=== PATIENT | female | born 1950 | race Caucasian/White ===

== ENCOUNTER 2016-07-28 16:18 | Emergency (ER) | payer OTHER ==
[~2016-07-28] VITALS: Ht 160 cm; Wt 83.2 kg
[2016-07-28] MEDS ORDERED: CITA20TA9 PO (16:28)
[2016-07-28] MEDS ORDERED: MELO-273 PO (16:28)
[2016-07-28] MEDS ORDERED: LISI-661 PO (16:28)
[2016-07-28] MEDS ORDERED: TAMO10 PO (16:28)
[2016-07-28] MEDS ORDERED: GLIP10 PO (16:28)
[2016-07-28] MEDS ORDERED: VENL25TA47 PO (16:28)
[2016-07-28] MEDS ORDERED: METF500T4 PO (16:28)
[2016-07-28] MEDS ORDERED: ATOR10TA84 PO (16:28)
[2016-07-28 16:44] LABS: BASOPHILS % (AUTO) 0.1 % (0.0-2.0); EOSINOPHILS % (AUTO) 2.2 % (1.0-6.0); HEMATOCRIT 43.8 % (36-46); HEMOGLOBIN 14.5 g/dL (12.0-16.0); LYMPHOCYTES # (AUTO) 2.5 K/uL (1.0-4.8); MEAN CORPUSCULAR HEMOGLOBIN 29.4 pg (26.0-34.0); MEAN CORPUSCULAR HGB CONC 33.1 G/dL (31.0-37.0); MEAN CORPUSCULAR VOLUME 89 fL (80-100); MONOCYTES # (AUTO) 0.6 K/uL (0.1-1.0); MONOCYTES % (AUTO) 7.6 % (2.0-9.0); NEUTROPHILS % (AUTO) 60.1 % (40.0-70.0); PLATELET COUNT (AUTO) 244 K/uL (150-450); RED BLOOD CELL COUNT(AUTO) 4.93 MIL/uL (4.00-5.20); RED CELL DISTRIBUTION WIDTH 13.3 % (11.5-14.5); WHITE BLOOD COUNT (AUTO) 8.3 K/uL (4.5-11.0)
[2016-07-28 17:01] LABS: ANION GAP 10 mmol/L (8-16); CARBON DIOXIDE 27 mmol/L (22-29); CHLORIDE 101 mmol/L (98-107); CREATININE 0.86 mg/dL (0.60-1.30); GLOMERULAR FILTR. RATE CALC > 60 mL/min (>60); POTASSIUM 4.1 mmol/L (3.5-5.1); SODIUM SERUM 138 mmol/L (136-145); UREA NITROGEN, BLOOD 16 mg/dL (7-18)
[2016-07-28 17:06] LABS: ALANINE AMINOTRANSFERASE 36 U/L (12-78); ALBUMIN 3.7 g/dL (3.4-5.0); ASPARTATE AMINOTRANSFERASE 25 U/L (15-37); BILIRUBIN,TOTAL 0.4 mg/dL (0.1-1.0); TOTAL PROTEIN, SERUM 7.3 g/dL (6.4-8.2)
[2016-07-28 17:16] LABS: GLUCOSE,POINT OF CARE 150 MG/DL (70-110)
[2016-07-28 18:13] LABS: APPEARANCE,URINE CLEAR (CLEAR); GLUCOSE, URINE (UA) 500 mg/dL (NEGATIVE); KETONES,URINE NEGATIVE (NEGATIVE); LEUKOCYTE ESTERASE ,URINE SMALL (NEGATIVE); OCCULT BLOOD,URINE NEGATIVE (NEGATIVE); PROTEIN,URINE NEGATIVE (NEGATIVE)
[2016-07-28 18:14] LABS: B-TYPE NATRIURETIC PEPTIDE 5 pg/mL (0-100)
[2016-07-28 18:15] LABS: ADD UA MICROSCOPIC YES
[2016-07-28 18:19] LABS: RBC,URINE 0-2 /HPF (0-2); SQUAMOUS EPITHELIAL CELL,UR Moderate /LPF (None Seen)
[2016-07-28 18:25] LABS: CREATINE KINASE, TOTAL 82 U/L (26-192)
[2016-07-28 18:27] LABS: CREATINE KINASE MB < 0.5 ng/mL (0-5)
[2016-07-28] MEDS ORDERED: RANITIDINE HCL 150 MG TABLET PO ONE (19:00)
[2016-07-28] MEDS ORDERED: PredniSONE 20 MG TABLET PO ONE (19:00)
[2016-07-28] MEDS ORDERED: HYDROCODONE/ACETAMINOPHEN 5-325 MG TABLET PO ONE (19:00)
[2016-07-28 19:16] VITALS: BP 120/72
== END 2016-07-28 19:30 | disposition home or self-care (01) ==
LOC: EMS 16:20
DX: R07.89 Other chest pain (principal); M32.9 Systemic lupus erythematosus, unspecified; E11.65 Type 2 diabetes mellitus with hyperglycemia; I10 Essential (primary) hypertension; E11.9 Type 2 diabetes mellitus without complications; Z88.0 Allergy status to penicillin; Z88.2 Allergy status to sulfonamides
CPT/HCPCS: 36415; 71010; 80053; 81001; 82550; 82553; 82962; 83880; 84484; 85025; 93005; 99285; J7512

== ENCOUNTER 2016-10-03 13:28 | Emergency (ER) | payer OTHER ==
[~2016-10-03] VITALS: Ht 160 cm; Wt 81.8 kg
[~2016-10-03 13:28] MED LIST: ATOR10TA84 PO; CITA20TA9 PO; GLIP10 PO; LISI-661 PO; MELO-273 PO; METF500T4 PO; TAMO10 PO; VENL25 PO
[2016-10-03 13:42] LABS: GLUCOSE,POINT OF CARE 235 MG/DL (70-110)
[2016-10-03] MEDS ORDERED: HYDR200T4 PO (13:44)
[2016-10-03] MEDS ORDERED: GLIP10 PO (13:44)
[2016-10-03] MEDS ORDERED: PredniSONE 20 MG TABLET PO ONE (15:30)
[2016-10-03] MEDS ORDERED: HYDROCODONE/ACETAMINOPHEN 5-325 MG TABLET PO ONE (15:30)
[2016-10-03 15:47] VITALS: BP 147/84
[2016-10-03] MEDS ORDERED: PNEUMOCOCCAL VACCINE POLYVALENT 0.5 ML VIAL [PPSV23] IM ONE (20:15)
== END 2016-10-03 15:49 | disposition home or self-care (01) ==
LOC: EMS 13:29
DX: E11.00 Type 2 diabetes mellitus with hyperosmolarity without nonketotic hyperglycemic-hyperosmolar coma (NKHHC) (principal); B02.9 Zoster without complications; I10 Essential (primary) hypertension; Z88.5 Allergy status to narcotic agent; Z88.0 Allergy status to penicillin; Z88.2 Allergy status to sulfonamides
CPT/HCPCS: 82962; 99283; J7512

== ENCOUNTER 2016-11-04 15:13 | Emergency (ER) | payer OTHER ==
[~2016-11-04] VITALS: Ht 160 cm; Wt 81.3 kg
[~2016-11-04 15:13] MED LIST changes: -ATOR10TA84 PO; -CITA20TA9 PO; +HYDR200T4 PO; -MELO-273 PO; -TAMO10 PO; -VENL25 PO
[2016-11-04] MEDS ORDERED: NORT75CA PO (16:00)
[2016-11-04] MEDS ORDERED: NORT50CA PO (16:00)
[2016-11-04 16:02] LABS: GLUCOSE,POINT OF CARE 186 MG/DL (70-110)
[2016-11-04 16:20] LABS: BASOPHILS % (AUTO) 0.1 % (0.0-2.0); HEMATOCRIT 44.1 % (36-46); HEMOGLOBIN 14.1 g/dL (12.0-16.0); LYMPHOCYTES # (AUTO) 2.5 K/uL (1.0-4.8); LYMPHOCYTES % (AUTO) 29.6 % (22.0-44.0); MEAN CORPUSCULAR HEMOGLOBIN 28.5 pg (26.0-34.0); MEAN CORPUSCULAR HGB CONC 31.9 G/dL (31.0-37.0); MEAN CORPUSCULAR VOLUME 89 fL (80-100); MONOCYTES # (AUTO) 0.6 K/uL (0.1-1.0); MONOCYTES % (AUTO) 6.9 % (2.0-9.0); NEUTROPHILS # (AUTO) 5.3 K/uL (1.8-7.7); NEUTROPHILS % (AUTO) 61.4 % (40.0-70.0); PLATELET COUNT (AUTO) 243 K/uL (150-450); RED BLOOD CELL COUNT(AUTO) 4.94 MIL/uL (4.00-5.20); RED CELL DISTRIBUTION WIDTH 14.1 % (11.5-14.5); WHITE BLOOD COUNT (AUTO) 8.6 K/uL (4.5-11.0)
[2016-11-04 16:34] LABS: ANION GAP 10 mmol/L (8-16); CARBON DIOXIDE 27 mmol/L (22-29); CHLORIDE 102 mmol/L (98-107); CREATININE 0.86 mg/dL (0.60-1.30); GLOMERULAR FILTR. RATE CALC > 60 mL/min (>60); POTASSIUM 3.9 mmol/L (3.5-5.1); SODIUM SERUM 139 mmol/L (136-145); UREA NITROGEN, BLOOD 14 mg/dL (7-18)
[2016-11-04 16:57] LABS: ALANINE AMINOTRANSFERASE 45 U/L (12-78); ASPARTATE AMINOTRANSFERASE 21 U/L (15-37); BILIRUBIN,TOTAL 0.4 mg/dL (0.1-1.0); TOTAL PROTEIN, SERUM 7.6 g/dL (6.4-8.2)
[2016-11-04 18:29] LABS: APPEARANCE,URINE CLOUDY (CLEAR); GLUCOSE, URINE (UA) 250 mg/dL (NEGATIVE); KETONES,URINE NEGATIVE (NEGATIVE); OCCULT BLOOD,URINE NEGATIVE (NEGATIVE); PROTEIN,URINE NEGATIVE (NEGATIVE)
[2016-11-04 19:13] VITALS: BP 136/81
[2016-11-04 19:14] LABS: LEUKOCYTE ESTERASE ,URINE SMALL (NEGATIVE); RBC,URINE 0-2 /HPF (0-2)
[2016-11-04 19:15] LABS: SQUAMOUS EPITHELIAL CELL,UR Moderate /LPF (None Seen)
[2016-11-04] MEDS ORDERED: LEVOFLOXACIN 500 MG TABLET PO ONE (19:45)
== END 2016-11-04 19:56 | disposition home or self-care (01) ==
LOC: EMS 15:15
DX: N39.0 Urinary tract infection, site not specified (principal); H57.8 Other specified disorders of eye and adnexa; E11.9 Type 2 diabetes mellitus without complications; I10 Essential (primary) hypertension; Z88.0 Allergy status to penicillin; Z88.1 Allergy status to other antibiotic agents; Z88.5 Allergy status to narcotic agent
CPT/HCPCS: 82962; 87086; 99284

== ENCOUNTER 2017-03-14 18:41 | Emergency (ER) | payer OTHER ==
[~2017-03-14] VITALS: Ht 160 cm; Wt 78.6 kg
[~2017-03-14 18:41] MED LIST changes: +NORT75CA PO
[2017-03-14] MEDS ORDERED: ACETAMINOPHEN 160 MG/5 ML SUSPENSION UDCUP ONE (18:46)
[2017-03-14] MEDS ORDERED: ATOR10TA84 PO (19:02)
[2017-03-14 19:08] LABS: GLUCOSE,POINT OF CARE 139 MG/DL (70-110)
[2017-03-14 20:03] LABS: GLUCOSE,POINT OF CARE 125 MG/DL (70-110)
[2017-03-14 20:06] LABS: ANION GAP 8 mmol/L (8-16); CARBON DIOXIDE 29 mmol/L (22-29); CHLORIDE 106 mmol/L (98-107); GLOMERULAR FILTR. RATE CALC > 60 mL/min (>60); POTASSIUM 3.8 mmol/L (3.5-5.1); SODIUM SERUM 143 mmol/L (136-145); UREA NITROGEN, BLOOD 12 mg/dL (7-18)
[2017-03-14 20:15] LABS: ALANINE AMINOTRANSFERASE 42 U/L (12-78); ALBUMIN 3.8 g/dL (3.4-5.0); ASPARTATE AMINOTRANSFERASE 26 U/L (15-37); BILIRUBIN,TOTAL 0.3 mg/dL (0.1-1.0); TOTAL PROTEIN, SERUM 6.9 g/dL (6.4-8.2)
[2017-03-14 20:17] LABS: BASOPHILS % (AUTO) 0.5 % (0.0-2.0); HEMATOCRIT 41.6 % (36-46); HEMOGLOBIN 13.9 g/dL (12.0-16.0); LYMPHOCYTES % (AUTO) 35.6 % (22.0-44.0); MEAN CORPUSCULAR HEMOGLOBIN 30.1 pg (26.0-34.0); MEAN CORPUSCULAR HGB CONC 33.5 G/dL (31.0-37.0); MEAN CORPUSCULAR VOLUME 90 fL (80-100); MONOCYTES # (AUTO) 0.6 K/uL (0.1-1.0); MONOCYTES % (AUTO) 6.8 % (2.0-9.0); NEUTROPHILS # (AUTO) 4.6 K/uL (1.8-7.7); NEUTROPHILS % (AUTO) 55.1 % (40.0-70.0); PLATELET COUNT (AUTO) 242 K/uL (150-450); RED BLOOD CELL COUNT(AUTO) 4.63 MIL/uL (4.00-5.20); RED CELL DISTRIBUTION WIDTH 13.9 % (11.5-14.5); WHITE BLOOD COUNT (AUTO) 8.4 K/uL (4.5-11.0)
[2017-03-14 20:28] LABS: B-TYPE NATRIURETIC PEPTIDE 15 pg/mL (0-100)
[2017-03-14 20:45] LABS: APPEARANCE,URINE TURBID (CLEAR); GLUCOSE, URINE (UA) NEGATIVE (NEGATIVE); KETONES,URINE NEGATIVE (NEGATIVE); LEUKOCYTE ESTERASE ,URINE LARGE (NEGATIVE); OCCULT BLOOD,URINE NEGATIVE (NEGATIVE); PH,URINE 7.5 (5.0-8.0); PROTEIN,URINE NEGATIVE (NEGATIVE)
[2017-03-14 20:49] LABS: ADD UA MICROSCOPIC YES
[2017-03-14 21:08] VITALS: BP 119/67
[2017-03-14 21:26] LABS: AMORPHOUS SEDIMENT,UR Many /LPF (None Seen)
[2017-03-14 21:27] LABS: SQUAMOUS EPITHELIAL CELL,UR Few /LPF (None Seen)
[2017-03-14 21:28] LABS: RBC,URINE 0-2 /HPF (0-2)
[2017-03-14] MEDS ORDERED: ONDANSETRON HCL 4 MG/2 ML VIAL IVP ONE (21:30)
[2017-03-14] MEDS ORDERED: MORPHINE SULFATE 4 MG/ML SYRINGE IVP ONE (21:30)
[2017-03-14] MEDS ORDERED: CIPROFLOXACIN 400 MG/D5% WATER 200 ML IV ONE (21:30)
== END 2017-03-14 22:41 | disposition home or self-care (01) ==
LOC: EMS 18:42
DX: N39.0 Urinary tract infection, site not specified (principal); K21.9 Gastro-esophageal reflux disease without esophagitis; E11.9 Type 2 diabetes mellitus without complications; I10 Essential (primary) hypertension; Z85.3 Personal history of malignant neoplasm of breast; Z88.2 Allergy status to sulfonamides; Z88.0 Allergy status to penicillin; Z88.6 Allergy status to analgesic agent
CPT/HCPCS: 36415; 80053; 81001; 82962; 83880; 84484; 85025; 87086; 93005; 96365; 96375; 99285; G0480; J0744; J2270; J2405

== ENCOUNTER 2017-10-01 13:57 | Emergency (ER) | payer MEDICARE, OTHER ==
[~2017-10-01] VITALS: Ht 160 cm; Wt 80.0 kg
[~2017-10-01 13:57] MED LIST changes: +ATOR10TA84 PO
[2017-10-01 14:57] LABS: GLUCOSE,POINT OF CARE 194 MG/DL (70-110)
[2017-10-01 15:50] VITALS: BP 145/80
== END 2017-10-01 15:57 | disposition home or self-care (01) ==
LOC: EMS 13:58
DX: B02.9 Zoster without complications (principal); I10 Essential (primary) hypertension; E11.9 Type 2 diabetes mellitus without complications; Z88.2 Allergy status to sulfonamides; Z88.5 Allergy status to narcotic agent; Z88.0 Allergy status to penicillin
CPT/HCPCS: 82962; 99283

== ENCOUNTER 2019-05-28 18:20 | Emergency (ER) | payer MEDICARE, OTHER ==
[~2019-05-28] VITALS: Ht 160 cm; Wt 80.9 kg
[~2019-05-28 18:20] MED LIST changes: +METF-960 PO; -METF500T4 PO; -NORT75CA PO
[2019-05-28 19:00] LABS: APPEARANCE,URINE CLOUDY (CLEAR); BILIRUBIN,URINE NEGATIVE (NEGATIVE); GLUCOSE, URINE (UA) 100 mg/dL (NEGATIVE); KETONES,URINE NEGATIVE (NEGATIVE); LEUKOCYTE ESTERASE ,URINE LARGE (NEGATIVE); NITRATE,URINE NEGATIVE (NEGATIVE); OCCULT BLOOD,URINE NEGATIVE (NEGATIVE); PH,URINE 6.5 (5.0-8.0); PROTEIN,URINE NEGATIVE (NEGATIVE); UROBILINOGEN,URINE 0.2 mg/dL (<=1.0)
[2019-05-28] MEDS ORDERED: MUPIROCIN CALCIUM 2% 22 GM OINTMENT TP ONE (19:00)
[2019-05-28 19:22] LABS: RBC,URINE None Seen /HPF (0-2)
[2019-05-28 19:23] LABS: BACTERIA,URINE Rare /HPF (None Seen); SQUAMOUS EPITHELIAL CELL,UR Moderate /LPF (None Seen)
[2019-05-28 19:34] LABS: BASOPHILS % (AUTO) 0.8 % (0.0-2.0); EOSINOPHILS % (AUTO) 2.3 % (1.0-6.0); HEMATOCRIT 43.1 % (36-46); HEMOGLOBIN 14.2 g/dL (12.0-16.0); LYMPHOCYTES # (AUTO) 2.7 K/uL (1.0-4.8); LYMPHOCYTES % (AUTO) 35.2 % (22.0-44.0); MEAN CORPUSCULAR HEMOGLOBIN 29.5 pg (26.0-34.0); MEAN CORPUSCULAR HGB CONC 32.9 G/dL (31.0-37.0); MEAN CORPUSCULAR VOLUME 90 fL (80-100); MONOCYTES # (AUTO) 0.6 K/uL (0.1-1.0); MONOCYTES % (AUTO) 7.8 % (2.0-9.0); NEUTROPHILS # (AUTO) 4.2 K/uL (1.8-7.7); NEUTROPHILS % (AUTO) 53.9 % (40.0-70.0); PLATELET COUNT (AUTO) 207 K/uL (150-450); RED CELL DISTRIBUTION WIDTH 13.8 % (11.5-14.5)
[2019-05-28 19:43] LABS: ANION GAP 6 mmol/L (8-16); CALCIUM, TOTAL 8.8 mg/dL (8.8-10.5); CARBON DIOXIDE 30 mmol/L (22-29); CHLORIDE 103 mmol/L (98-107); CREATININE 0.84 mg/dL (0.60-1.30); GLOMERULAR FILTR. RATE CALC > 60 mL/min (>60); GLUCOSE,RANDOM 203 mg/dL (70-110); POTASSIUM 3.8 mmol/L (3.5-5.1); SODIUM SERUM 139 mmol/L (136-145); UREA NITROGEN, BLOOD 13 mg/dL (7-18)
[2019-05-28 19:49] LABS: ALANINE AMINOTRANSFERASE 40 U/L (12-78); ALBUMIN 3.5 g/dL (3.4-5.0); ALKALINE PHOSPHATASE 104 U/L (46-116); ASPARTATE AMINOTRANSFERASE 24 U/L (15-37); BILIRUBIN,TOTAL 0.3 mg/dL (0.1-1.0); TOTAL PROTEIN, SERUM 7.2 g/dL (6.4-8.2)
[2019-05-28 20:20] VITALS: BP 128/72
== END 2019-05-28 20:40 | disposition home or self-care (01) ==
LOC: EMS 18:21
DX: N39.0 Urinary tract infection, site not specified (principal); R21 Rash and other nonspecific skin eruption; E11.9 Type 2 diabetes mellitus without complications; I10 Essential (primary) hypertension; M32.9 Systemic lupus erythematosus, unspecified; Z90.49 Acquired absence of other specified parts of digestive tract; Z90.710 Acquired absence of both cervix and uterus; Z85.3 Personal history of malignant neoplasm of breast; Z98.890 Other specified postprocedural states; Z88.0 Allergy status to penicillin; Z88.2 Allergy status to sulfonamides; Z88.5 Allergy status to narcotic agent
CPT/HCPCS: 87086

== ENCOUNTER 2023-07-31 09:06 | Emergency (ER) | payer MEDICARE, OTHER ==
[~2023-07-31] VITALS: Ht 160 cm; Wt 75.9 kg
[~2023-07-31 09:06] MED LIST changes: +ATOR10TA PO; -ATOR10TA84 PO; -GLIP10 PO; +GLIP10TA10 PO; +HYDR200T38 PO; -HYDR200T4 PO; -LISI-661 PO; +LISI-893 PO; +METF-1211 PO; -METF-960 PO
[2023-07-31 09:11] VITALS: TEMP 98.1
[2023-07-31 09:33] LABS: APPEARANCE,URINE HAZY (CLEAR); BILIRUBIN,URINE NEGATIVE (NEGATIVE); COLOR,URINE LIGHT BROWN (YELLOW); GLUCOSE, URINE (UA) NEGATIVE (NEGATIVE); KETONES,URINE NEGATIVE (NEGATIVE); LEUKOCYTE ESTERASE ,URINE LARGE (NEGATIVE); NITRATE,URINE NEGATIVE (NEGATIVE); OCCULT BLOOD,URINE LARGE (NEGATIVE); PH,URINE 6.5 (5.0-8.0); PROTEIN,URINE 100-200,SEE CONFIRM mg/dL (NEGATIVE); SPECIFIC GRAVITIY, URINE 1.006 (1.003-1.030); UROBILINOGEN,URINE <=1.0 mg/dL (<=1.0)
[2023-07-31 09:36] LABS: BASOPHILS % (AUTO) 0.5 % (0.0-2.0); EOSINOPHILS % (AUTO) 1.9 % (1.0-6.0); HEMATOCRIT 45.3 % (36-46); HEMOGLOBIN 14.8 g/dL (12.0-16.0); LYMPHOCYTES # (AUTO) 1.8 K/uL (1.0-4.8); LYMPHOCYTES % (AUTO) 17.6 % (22.0-44.0); MEAN CORPUSCULAR HEMOGLOBIN 29.4 pg (26.0-34.0); MEAN CORPUSCULAR HGB CONC 32.7 G/dL (31.0-37.0); MEAN CORPUSCULAR VOLUME 90 fL (80-100); MONOCYTES # (AUTO) 0.7 K/uL (0.1-1.0); MONOCYTES % (AUTO) 7.3 % (2.0-9.0); NEUTROPHILS # (AUTO) 7.3 K/uL (1.8-7.7); NEUTROPHILS % (AUTO) 72.7 % (40.0-70.0); PLATELET COUNT (AUTO) 210 K/uL (150-450); RED BLOOD CELL COUNT(AUTO) 5.05 MIL/uL (4.00-5.20); RED CELL DISTRIBUTION WIDTH 13.9 % (11.5-14.5); WHITE BLOOD COUNT (AUTO) 10.1 K/uL (4.5-11.0)
[2023-07-31 09:41] LABS: ANION GAP 9 mmol/L (8-16); CALCIUM, TOTAL 9.4 mg/dL (8.8-10.5); CARBON DIOXIDE 28 mmol/L (22-29); CHLORIDE 99 mmol/L (98-107); CREATININE 0.62 mg/dL (0.60-1.30); GLOMERULAR FILTR. RATE CALC > 60 mL/min (>60); GLUCOSE,RANDOM 186 mg/dL (70-110); POTASSIUM 4.1 mmol/L (3.5-5.1); SODIUM SERUM 136 mmol/L (136-145); UREA NITROGEN, BLOOD 16 mg/dL (7-18)
[2023-07-31 09:47] LABS: ALANINE AMINOTRANSFERASE 43 U/L (12-78); ALBUMIN 4.1 g/dL (3.4-5.0); ALKALINE PHOSPHATASE 116 U/L (46-116); ASPARTATE AMINOTRANSFERASE 24 U/L (15-37); BILIRUBIN,TOTAL 0.7 mg/dL (0.1-1.0); TOTAL PROTEIN, SERUM 7.2 g/dL (6.4-8.2)
[2023-07-31] MEDS: LEVOFLOXACIN 250 MG TABLET PO ONE (10:10)
[2023-07-31 10:11] LABS: SULFOSALICYLIC ACID,URINE 2+ (Negative)
[2023-07-31] MEDS: ACETAMINOPHEN 500 MG TABLET PO ONE (10:11)
[2023-07-31 10:12] LABS: BACTERIA,URINE Many /HPF (None Seen)
[2023-07-31] MEDS ORDERED: ACET-3385 PO (10:18)
[2023-07-31] MEDS ORDERED: LEVO750T68 PO (10:18)
[2023-07-31 10:30] VITALS: BP 141/86; PULSE 88; RESP 18
== END 2023-07-31 10:35 | disposition home or self-care (01) ==
LOC: EMS 09:32
DX: N39.0 Urinary tract infection, site not specified (principal); E11.9 Type 2 diabetes mellitus without complications; I10 Essential (primary) hypertension; Z90.49 Acquired absence of other specified parts of digestive tract; Z90.710 Acquired absence of both cervix and uterus; Z88.2 Allergy status to sulfonamides; Z88.5 Allergy status to narcotic agent; Z88.0 Allergy status to penicillin
CPT/HCPCS: 80053; 81001; 81002; 85025; 87086; 87186; 99283